=== PATIENT | female | born 2000 | race Caucasian/White ===

== ENCOUNTER 2020-11-24 21:22 | Outpatient (CLI) | payer OTHER ==
[~2020-11-24 21:22] MED LIST: VALTREX1000 MG PO
[2020-11-24 23:04] LABS: HEMOGLOBIN 9.6 gm/dl (12.3-15.3); RED BLOOD COUNT 3.84 M/UL (4.00-5.10); WHITE BLOOD COUNT 7.6 K/UL (4.5-11.0)
[2020-11-24 23:25] LABS: BUN/CREATININE RATIO 15 (0-10)
== END 2020-11-25 | disposition home or self-care (01) ==
LOC: GENOP 21:22
PROVIDERS: Obstetrics & Gynecology
DX: O99.891 Other specified diseases and conditions complicating pregnancy (principal); R03.0 Elevated blood-pressure reading, without diagnosis of hypertension; M79.89 Other specified soft tissue disorders; O98.313 Other infections with a predominantly sexual mode of transmission complicating pregnancy, third trimester; A60.00 Herpesviral infection of urogenital system, unspecified; O99.353 Diseases of the nervous system complicating pregnancy, third trimester; G43.909 Migraine, unspecified, not intractable, without status migrainosus; O99.343 Other mental disorders complicating pregnancy, third trimester; F41.9 Anxiety disorder, unspecified; Z3A.37 37 weeks gestation of pregnancy
CPT/HCPCS: 36415; 59025; 80053; 81001; 82570; 84156; 85025

== ENCOUNTER 2020-12-04 05:24 | Inpatient (IN) | payer OTHER ==
[~2020-12-04] VITALS: Ht 167.6 cm; Wt 113.4 kg
[2020-12-04 06:16] LABS: HEMOGLOBIN 10.2 gm/dl (12.3-15.3); RED BLOOD COUNT 4.12 M/UL (4.00-5.10); WHITE BLOOD COUNT 6.8 K/UL (4.5-11.0)
[2020-12-04] MEDS ORDERED: VALACYCLOVIR500 MG PO (06:43)
[2020-12-04] MEDS ORDERED: TYLENOL325 MG PO (06:44)
[2020-12-04] MEDS ORDERED: FLINTSTONES1 EAC1 PO (06:44)
[2020-12-04] MEDS ORDERED: IBUPROFEN600 MG PO (10:34)
[2020-12-04] MEDS ORDERED: DOCUSATE SODIU100 MG PO (10:34)
[2020-12-05 06:49] LABS: HEMOGLOBIN 9.8 gm/dl (12.3-15.3)
== END 2020-12-05 14:04 | disposition home or self-care (01) | DRG 807 ==
LOC: OB 05:24
PROVIDERS: Obstetrics & Gynecology; ADMIT Obstetrics & Gynecology
PROC: 10E0XZZ Delivery of Products of Conception, External Approach (ICD-10-PCS; principal; 2020-12-04)
PROC: 3E033VJ Introduction of Other Hormone into Peripheral Vein, Percutaneous Approach (ICD-10-PCS; 2020-12-04)
PROC: 10907ZC Drainage of Amniotic Fluid, Therapeutic from Products of Conception, Via Natural or Artificial Opening (ICD-10-PCS; 2020-12-04)
PROC: 0HQ9XZZ Repair Perineum Skin, External Approach (ICD-10-PCS; 2020-12-04)
PROC: 0UQMXZZ Repair Vulva, External Approach (ICD-10-PCS; 2020-12-04)
PROC: 4A1HXCZ Monitoring of Products of Conception, Cardiac Rate, External Approach (ICD-10-PCS; 2020-12-04)
DX: O98.52 Other viral diseases complicating childbirth (principal); Z37.0 Single live birth; O99.02 Anemia complicating childbirth; Z20.822 Contact with and (suspected) exposure to COVID-19; Z3A.39 39 weeks gestation of pregnancy; O70.0 First degree perineal laceration during delivery; B00.9 Herpesviral infection, unspecified; D64.9 Anemia, unspecified
CPT/HCPCS: 81001; 82800; 85014; 85018; 85025; J2590; J7120; U0003